=== PATIENT | female | born 1960 | race Caucasian/White ===

== ENCOUNTER 2019-09-04 19:19 | Observation (INO) | payer OTHER, MEDICAID ==
[~2019-09-04] VITALS: Ht 152.4 cm; Wt 99.3 kg
[2019-09-04 19:30] VITALS: BP 154/78
[2019-09-04] MEDS ORDERED: PRILOSEC OTC20 MG PO (19:32)
[2019-09-04] MEDS ORDERED: NEURONTIN 300M300 M2 PO (19:33)
[2019-09-04] MEDS ORDERED: PROZAC20 M1 PO (19:33)
[2019-09-04 19:43] LABS: ABSOLUTE BASOPHILS 0.1 thou/uL (0.0-0.2); ABSOLUTE EOSINOPHILS 0.1 thou/uL (0.0-0.7); ABSOLUTE LYMPHOCYTES 2.2 thou/uL (0.8-5.3); ABSOLUTE MONOCYTES 0.8 thou/uL (0.0-1.2); ABSOLUTE NEUTROPHILS 7.2 thou/uL (1.6-8.1); EOSINOPHILS 1.2 %; HEMATOCRIT 42.9 % (37.0-47.0); HEMOGLOBIN 14.4 gm/dL (12.0-15.0); LYMPHOCYTES 20.8 %; MCH 30.2 pg (26.0-34.0); MCHC 33.7 g/dL (28.0-37.0); MCV 89.6 fL (80.0-100.0); MONOCYTES 8.1 %; MPV 8.6 fl. (7.2-11.1); NUCLEATED RBCS 0 /100WBC; PLATELET COUNT* 242 thou/uL (150-400); POLYS 68.9 %; RBC 4.79 mil/uL (4.20-5.00); RDW-CV 13.9 % (10.5-14.5); WBC 10.5 thou/uL (4.0-11.0)
[2019-09-04 19:51] LABS: CALCIUM 8.7 mg/dL (8.5-10.1); POTASSIUM 3.6 mmol/L (3.5-5.1)
[2019-09-04 19:54] LABS: PROTIME 10.6 Seconds (9.20-11.50)
[2019-09-04 20:02] LABS: ALBUMIN 3.7 g/dL (3.4-5.0); TOTAL BILIRUBIN 0.7 mg/dL (<0.1-1.0); TOTAL PROTEIN 6.9 g/dL (6.4-8.2)
[2019-09-04 21:35] VITALS: BP 135/75
--- NOTE | 2019-09-04 22:00 | NUR ---
SET OF KEYS AND HEARING AIDS REMOVED FROM PATIENT AND GIVEN TO PATIENT'S SON.
[2019-09-04] MEDS ORDERED: LISINOPRIL-HCT1 EAC1 PO (22:24)
[2019-09-05 04:00] VITALS: BP 145/76
[2019-09-05 08:09] VITALS: BP 140/65
--- NOTE | 2019-09-05 09:14 | NUR ---
ASSUMED CARE OF PT THIS AM AROUND 0715- CAFETERIA OPERATOR IN PLACE ORDERED, A-PACED WITH 1ST DEGREE- UPON ASSESSMENT PT NOTED TO BE RESTING IN BED- PT A&O X4- CONT OF BOWEL AND BLADDER- UP AD-YSABEL IN ROOM STEADY GAIT NOTED- LCTA, RESP EVEN AND [id number], O2 SAT 97% ON RA- ABD SOFT/OBESE/NON-TENDER, BS X4 QUADS- LAST BM REPORTED 09/04/19- IV NOTED TO LEFT AC INTACT, IVF INFUSSING PRESCRIBED- PT CURRENLTY NPO PENDING CARDIO PLANS- 2+ EDEMA NOTED TO BLE- PT DENIES ANY C/O PAIN/DISCOMFORT AT THIS TIME- CALL LIGHT AND PERSONAL BELONGINGS WITH IN REACH- PT MAKES NEEDS KNOWN- ALL NEEDS MET AT THIS TIME-WCTM
[2019-09-05] MEDS ORDERED: LASIX 20 MG TAB20 MG PO (10:16)
--- NOTE | 2019-09-05 11:08 | EKG ---
[place] [address] ELECTROCARDIOGRAM REPORT Name: KRYSTINA DUNBAR Room: [address]#: [id number] Admission: 09/04/19 Attend Phys: Justin Coleman, Discharge: Date of : 56 Date of Service: 09/04/191922 Report #: [id number] THIS REPORT FOR: //name// [facility] ED Test Date: 2019-09-04 Test Time: 19:23:20 Pat Name: KRYSTINAFRANNY DUNBAR Department: Room: [facility] Gender: F [employer] Equipment Mechanic: DAMIEN : 1960 Requested By: Blaire Martinez Order Number: [id number] MD: Garrett Bennett Measurements Intervals [place] Rate: 61 P: 44 MN: 149 QRS: 37 QRSD: 117 T: 31 QT: 410 QTc: 413 Interpretive Statements sinus rhythm Nonspecific intraventricular conduction delay Baseline wander in lead(s) II,III,aVR,aVF No previous ECG available for comparison Electronically Signed On 09-05-2019 11:06:37 CDT by Garrett Bennett [email or web address] <ELECTRONICALLY SIGNED> By: Garrett Bennett MD, [facility] 09/05/19 1106 22 22 Garrett Bennett MD, [facility] /EPI
[2019-09-05 11:44] VITALS: BP 174/80
[2019-09-05 12:34] VITALS: BP 174/80
--- NOTE | 2019-09-05 13:49 | 2DMMODE ---
[place] [address] 2 D/M-MODE ECHOCARDIOGRAM Name: KRYSTINA DUNBAR Room: [address] Lucio Page#: [id number] Admission: 09/04/19 Attend Phys: Justin Coleman, Discharge: Date of : 56 Date of Service: 09/05/19 1348 Report #: [id number] THIS REPORT FOR: cc: Physician not on staff Physician not on staff Garrett Bennett MD [facility] ~ APPROVED REPORT Study performed: 09/05/2019 11:54:20 EXAM: Comprehensive 2D, Doppler, and color-flow Echocardiogram Patient Location: In-Patient Room #: [facility] Status: routine BSA: 1.94 HR: 45 bpm BP: 174/80 mmHg Rhythm: NSR Other Information Study Quality: Good Indications Pacemaker chest burning 2D Dimensions IVSd: 14.85 (7-11mm) LVOT Diam: 19.95 (18-24mm) LVDd: 37.87 mm PWd: 13.26 (7-11mm) Ascending Ao: 31.44 (22-36mm) LVDs: 24.21 (25-40mm) Aortic Root: 31.86 mm Volumes Left Atrial Volume (Systole) LA ESV Index: 35.20 mL/m2 Aortic Valve AoV Peak Roman.: 1.18 m/s AO Peak Gr.: 5.56 mmHg LVOT Max P.67 mmHg AO Mean Gr.: 3.32 mmHg LVOT Mean P.78 mmHg LVOT Max V: 0.96 m/s AO V2 VTI: 27.11 cm LVOT Mean V: 0.61 m/s BERKLEY (VTI): 2.87 cm2 LVOT V1 VTI: 24.92 [place] [address] 2 D/M-MODE ECHOCARDIOGRAM Name: KRYSTINA DUNBAR Room: [address] Kaylee#: [id number] Admission: 09/04/19 Attend Phys: Justin Coleman, Discharge: Date of : 56 Date of Service: 09/05/19 1348 Report #: [id number] Mitral Valve E/A Ratio: 1.55 MV Decel. Time: 215.48 ms MV E Max Roman.: 0.88 m/s MV PHT: 62.49 ms MVA (PHT): 3.52 cm2 TDI E/Lateral E': 4.89 E/Medial E': 8.80 Medial E' Roman.: 0.10 m/s Lateral E' Roman.: 0.18 m/s Pulmonary Valve PV Peak Roman.: 0.80 m/s PV Peak Gr.: 2.56 mmHg Tricuspid Valve RAP Estimate: 5.00 mmHg TR Peak Gr.: 32.44 mmHg RVSP: 37.00 mmHg PA Pressure: 37.00 mmHg Left Ventricle The left ventricle is normal size. There is normal LV segmental wall motion. Borderline concentric left ventricular hypertrophy. Left ventricular systolic function is normal. The left ventricular ejection fraction is within the normal range. LVEF is 55-60%. The left ventricular diastolic function is normal. Right Ventricle The right ventricle is normal size. The right ventricular systolic function is normal. Pacemaker lead is present in the right ventricle. Atria The left atrium size is normal. The right atrium size is normal. Aortic Valve Mild aortic valve sclerosis. No aortic regurgitation is present. There is no aortic valvular stenosis. Mitral Valve The mitral valve is normal in structure. Trace mitral regurgitation. No evidence of mitral valve stenosis. Tricuspid Valve The tricuspid valve is normal in structure. [place] [address] 2 D/M-MODE ECHOCARDIOGRAM Name: KRYSTINA DUNBAR Room: [address]#: [id number] Admission: 09/04/19 Attend Phys: Justin Coleman, Discharge: Date of : 56 Date of Service: 09/05/19 1348 Report #: [id number] regurgitation. Mild pulmonary hypertension. Pulmonic Valve The pulmonary valve is normal in structure. There is no pulmonic valvular regurgitation. Great Vessels The aortic root is normal in size. IVC is normal in size and collapses >50% with inspiration. Pericardium There is no pericardial effusion. <Conclusion> The left ventricle is normal size. Borderline concentric left ventricular hypertrophy. Left ventricular systolic function is normal. The left ventricular ejection fraction is within the normal range. LVEF is 55-60%. The left ventricular diastolic function is normal. The right ventricle is normal size. The left atrium size is normal. The right atrium size is normal. Mild aortic valve sclerosis. No aortic regurgitation is present. There is no aortic valvular stenosis. The mitral valve is normal in structure. Trace mitral regurgitation. Mild tricuspid regurgitation. Mild pulmonary hypertension. IVC is normal in size and collapses >50% with inspiration. There is no pericardial effusion. There is normal LV segmental wall motion. Pacemaker lead is present in the right ventricle. <ELECTRONICALLY SIGNED> By: Garrett Bennett MD, FACC 09/05/19 1348 1348 1348 Garrett Bennett MD, FACC /INF
[2019-09-05 16:11] VITALS: BP 142/78
[2019-09-05 16:13] VITALS: BP 174/80
--- NOTE | 2019-09-06 11:20 | CON ---
[address] [address] CONSULTATION Name: KRYSTINA DUNBAR Room: [address] [place] Page#: [id number] Admission: 09/04/19 Attend Phys: Justin Coleman MD Discharge: 09/05/19 Date of : 56 Report #: [id number] THIS REPORT FOR: //name// cc: Physician not on staff Physician not on staff ~ THIS REPORT FOR: //name// CC: Justin GIRONHER GARY Physician staff DATE OF SERVICE: 09/05/2019 CARDIOLOGY CONSULTATION Thank you for allowing us to see the patient in cardiovascular assessment. HISTORY OF PRESENT ILLNESS: As you know, she is a pleasant 59-year-old female with a history of sick sinus syndrome, status post remote placement of a permanent pacing system. It was recently interrogated in [place] prior to moving to the [place] and was found to be functioning satisfactorily with estimated longevity of greater than 5 years. Yesterday, she noted a warm sensation and an uneasiness in that area and today she began to notice some sensation of burning an unusual sensation in the area of the device. There was no lightheadedness or dizziness and she denied any palpitations. There was no chest discomfort. She was admitted for evaluation of same. Since admission, she has demonstrated atrially paced rhythm with normal capture in the atrium and normal conduction through the nez perce channels of the ventricle with a narrow QRS complex. She feels quite comfortable at present. MEDICATIONS: Include fluoxetine, gabapentin, lisinopril, hydrochlorothiazide. PAST MEDICAL HISTORY: Remarkable for hypertension, migraines, ulcerative colitis. SOCIAL HISTORY: The patient is retired. She neither drinks nor smokes. FAMILY HISTORY: Remarkable for an GA in her father and mother having an [place] [address] CONSULTATION Name: DUNBARKRYSTINA Room: [address] Luc[place] Page#: [id number] Admission: 09/04/19 Attend Phys: Justin Coleman MD Discharge: 09/05/19 Date of : 56 Report #: [id number] REVIEW OF SYSTEMS: Remarkable for the following positives. RESPIRATORY: She notes obstructive sleep apnea. GASTROINTESTINAL: There is a history of reflux esophagitis. HEMATOLOGIC AND LYMPHATIC: She has a history of colon cancer. PSYCHIATRIC: She notes chronic depression. EYES: She has a history of cataracts, status post surgery. ENT: She wears dentures. Remainder is unremarkable. PHYSICAL EXAMINATION: GENERAL: Reveals an overweight, middle-aged female, in no acute distress. VITAL SIGNS: Blood pressure 130/70, pulse rate is 60, respirations are 18 per minute. NECK: Jugular venous pressure is normal. CHEST: Clear. CARDIAC: Reveals normal first and second heart sounds without murmurs or gallops. The left infraclavicular implantation site of the pacing system appears normal without redness, heat or tenderness. The device is freely mobile in the pocket and the pocket appears normal on examination. ABDOMEN: Modestly obese. EXTREMITIES: Reveal modest lower extremity edema without clubbing or cyanosis. Rhythm strips were reviewed and they demonstrate atrial pacing throughout with appropriate capture in the atrium and conduction of the ventricle through the nez perce channels. Echocardiogram demonstrates normal systolic function. The pacing system is noted passing the right atrium and right ventricle appears normal. IMPRESSION: 1. Sick sinus syndrome, status post prior placement of a permanent pacing system, which is currently pacing the atrium with conduction through the nez perce channels of the ventricle. 2. Complaints of local warmth and heat at the left infraclavicular implantation site of the pacemaker without any evidence to suggest pocket infection or inflammation at this time. 3. Hypertension. RECOMMENDATIONS: Given her current stability on my assessment of the pocket at present and review of rhythm strips which demonstrate satisfactory function with a recent interrogation of the device being normal, I would recommend discharging the patient to home and arranging followup of the device through our office as she has moved from [place] to [place]. <ELECTRONICALLY SIGNED> By: Garrett Bennett MD, FACC 09/06/19 1120 1503 [id number] Bennett MD, FACC /nt
== END 2019-09-05 17:48 | disposition home or self-care (01) ==
LOC: M.ERS 19:19 → M.TBA-ER 20:43 → M.2W 20:43
PROVIDERS: Personal Emergency Response Attendant; ADMIT Internal Medicine
DX: I49.5 Sick sinus syndrome (principal); T82.198A Other mechanical complication of other cardiac electronic device, initial encounter; I10 Essential (primary) hypertension; G43.909 Migraine, unspecified, not intractable, without status migrainosus; K51.90 Ulcerative colitis, unspecified, without complications; Z79.01 Long term (current) use of anticoagulants; Y83.9 Surgical procedure, unspecified as the cause of abnormal reaction of the patient, or of later complication, without mention of misadventure at the time of the procedure; Y92.89 Other specified places as the place of occurrence of the external cause